=== PATIENT | male | born 1970 | race Caucasian/White ===

== ENCOUNTER 2022-09-23 10:03 | Outpatient (CLI) | payer BC, MEDICAID, SELFPAY ==
[2022-09-23 14:36] LABS: Hepatitis C Virus Antibody* Negative (Negative)
[2022-09-23 14:52] LABS: Albumin* 4.7 g/dL (3.3-5.0); Chloride* 103 mmol/L (96-114)
[2022-09-23 14:53] LABS: Potassium* 3.7 mmol/L (3.6-5.1); Sodium* 142 mmol/L (135-149)
[2022-09-23 14:55] LABS: Aspartate Amino Transferase* 99 U/L (12-35); Bilirubin Total* 0.5 mg/dL (0.1-1.5); Blood Urea Nitrogen* 26 mg/dL (7-30); Carbon Dioxide* 30 mmol/L (20-32); Cholesterol* 181 mg/dL (90-199); Creatinine* 1.2 mg/dL (0.5-1.5); Estimated Glomerular Filt Rate 72 ml/min; Glucose* 114 mg/dL (60-115); Total Protein* 8.8 g/dL (6.0-8.3)
[2022-09-23 14:56] LABS: Alanine Aminotransferase* 99 U/L (4-50); Alkaline Phosphatase* 77 U/L (40-150); Calcium* 8.9 mg/dL (8.4-10.6); HDL Cholesterol* 26 mg/dL (>=40); LDL Cholesterol Calculated 114 mg/dL (<100); Triglycerides* 206 mg/dL (40-149)
[2022-09-26 20:19] LABS: Albumin 4.23 g/dL (3.75-5.01); Alpha 1 Globulin 0.31 g/dL (0.19-0.46); Alpha 2 Globulin 0.77 g/dL (0.48-1.05); EER Immunofix Electrophoresis EERUnavailable; Total Protein, Serum 8.5 g/dL (6.3-8.2)
--- NOTE | 2022-10-01 08:29 | ONC.NURNOTE ---
Received referal from Dr. 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 This case was discussed with Dr. Nadine Luu - per provider Not abnormal SPEP, patient should be worked up for autoimmune vs. infectious process. Oncologist printed out information on test that was run by Dr. Balbuena and requested that information be sent to her. Faxed to the [facility] at [phone]. Patient not to be scheduled at this time. Patient notified that does not need to see hematology at this time and his primary care should be reaching out to him.
== END 2022-09-23 10:04 | disposition home or self-care (01) ==
PROVIDERS: PCP Family Medicine; Visit Provider Family Medicine
DX: Z00.00 Encounter for general adult medical examination without abnormal findings (principal); D64.9 Anemia, unspecified; R76.8 Other specified abnormal immunological findings in serum; Z13.6 Encounter for screening for cardiovascular disorders; Z11.59 Encounter for screening for other viral diseases
CPT/HCPCS: 80053; 80061; 84165; 86334; 86803

== ENCOUNTER 2023-02-18 09:11 | Outpatient (CLI) | payer BC, SELFPAY | END 2023-02-18 09:12 | disposition home or self-care (01) | LOC: OP CLINIC 09:14 | PROVIDERS: PCP Family Medicine; Visit Provider Internal Medicine | DX: Z12.11 Encounter for screening for malignant neoplasm of colon (principal); K62.1 Rectal polyp; K57.30 Diverticulosis of large intestine without perforation or abscess without bleeding | CPT/HCPCS: 45380; 88305; J2250; J3010 ==

== ENCOUNTER 2023-03-28 12:22 | Outpatient (CLI) | payer BC, SELFPAY ==
[2023-03-28 22:05] LABS: Total Protein Urine 27 mg/dL
[2023-03-28 22:11] LABS: Microalbumin Urine 8 mg/dL
[2023-03-28 22:17] LABS: Creatinine Urine 58.6 mg/dL; Microalbumin Creatinine Ratio 130 mg/g (0-30)
== END 2023-03-28 12:23 | disposition home or self-care (01) ==
PROVIDERS: PCP Family Medicine; Visit Provider Family Medicine
DX: E11.9 Type 2 diabetes mellitus without complications (principal); D64.9 Anemia, unspecified; I10 Essential (primary) hypertension; R74.8 Abnormal levels of other serum enzymes; E78.5 Hyperlipidemia, unspecified
CPT/HCPCS: 80061; 82043; 82570; 84156

== ENCOUNTER 2023-05-20 14:51 | Outpatient (CLI) | payer BC, SELFPAY | END 2023-05-20 14:52 | disposition home or self-care (01) | PROVIDERS: PCP Family Medicine; Visit Provider Family Medicine | DX: Z01.818 Encounter for other preprocedural examination (principal); R73.03 Prediabetes; I10 Essential (primary) hypertension; E11.9 Type 2 diabetes mellitus without complications | CPT/HCPCS: 80053 ==

== ENCOUNTER 2023-05-31 06:12 | Day surgery (SDC) | payer BC, SELFPAY ==
[2023-05-31] VITALS (13 sets, daily range): BP systolic 93–129; BP diastolic 53–90; PULSE 53–73; RESP 12–20; TEMP 36.1–36.6; O2SAT 91–100; BMI 29.3
[2023-05-31] MEDS: SODIUM CHLORIDE 0.9 % (FLUSH) 10 ML SYRINGE IVF (06:24)
[2023-05-31] MEDS: LACTATED RINGERS 1000 ML 1,000 ML 100 ML IV (06:25)
[2023-05-31] MEDS: CEFAZOLIN 2 GM INJ IVP (07:36)
--- NOTE | 2023-05-31 08:16 | W.ANESCHARGE ---
Anesthesia Charges Start Date/Time Anesthesia Start Date: 05/31/23 Anesthesia Start Time: 07:26 Stop Date/Time Anesthesia Stop Date: 05/31/23 Anesthesia Stop Time: 09:09
[2023-05-31] MEDS: BUPIVACAINE 0.5% 30 ML INJECTION (08:50)
--- NOTE | 2023-05-31 08:56 | P.GSOP_ITS ---
Operative Note Pre-op diagnosis: Biliary colic Post-op diagnosis: Same Type of Procedure: Laparoscopic cholecystectomy Indications: Patient is a 52-year-old male who presented to clinic with clinical workup and symptoms consistent with biliary colic. Risks and benefits of operative intervention were discussed at length with the patient. Risks included but was not limited to: Bleeding, infection, risk of damage to surrounding structures, possible need for additional procedures, possible need to convert to an open operation and postoperative complications such as pneumonia, pulmonary emboli or NC. All questions and concerns were addressed with the patient agreeing to proceed. Procedure Description: After discussing the risks and benefits of the procedure, the patient signed informed consent.? The operative site was marked and the patient was brought to the operating room and placed on the operating table in supine position.? Care was taken to pad the patient's pressure points.?? The patient was then intubated by anesthesia.?? The operative site was then prepped and draped in the usual sterile fashion.? A time-out was then performed. Entrance to the abdomen was gained via a 5 mm Visiport in the left upper quadrant. The abdomen was insufflated and briefly surveyed for signs of injury. There was none. 11 mm umbilical port was placed as well as 2 working ports along the right costal margin. Patient was then placed in reverse Trendelenburg position with the right side up. The gallbladder fundus was grasped and retrac misael cephalad. The gallbladder was very contracted and fatty in appearance. The liver was also very nodular and hard, consistent with a cirrhotic liver. The infundibulum of the gallbladder was grasped. A combination of hook cautery and blunt dissection was used to carefully dissect out the cystic duct and artery until they could clearly be seen entering the gallbladder without any intervening structures. The gallbladder was dissected off the cystic plate to achieve the critical view. Once this was achieved the cystic duct and artery were each clipped with 2 clips proximally and 1 clip distally and transected with the scissors. The gallbladder was then taken off of the liver bed. This portion of the procedure was made difficult secondary to a contracted in fatty gallbladder. There was some bile spillage and a few small black stones entered into the abdomen. These were removed with irrigation. Once the gallbladder was free it was removed from the abdomen using an Endo-Catch bag. The gallbladder bed was surveyed for hemostasis. The umbilical port fascia was then closed with 0 Vicryl via the Chepe-Jen. the ports were then removed under direct vision. The skin was closed with absorbable subcuticular suture. Instrument sponge and needle counts were correct at the end of the case. The patient was then woken and transferred to the PACU in stable condition. The patient was then woken and transported to the recovery area in stable condition. ? The patient tolerated the procedure well. Findings: Nodular liver. Fatty contracted gallbladder with presence of cholelithiasis. Anesthesia: GETA Surgeon: Kellie Gallardo MD Estimated blood loss (mL): 5 Specimen: Gallbladder Condition: stable Disposition: PACU Date of procedure: 05/31/23
--- NOTE | 2023-05-31 09:07 | W.ANESCHARGE ---
Anesthesia Charges Start Date/Time Anesthesia Start Date: 05/31/23 Anesthesia Start Time: 07:26 Stop Date/Time Anesthesia Stop Date: 05/31/23 Anesthesia Stop Time: 09:09
[2023-05-31] MEDS: fentaNYL 100 MCG/2 ML inj 50 MCG IVP (09:14)
[2023-05-31] MEDS: LACTATED RINGERS 1000 ML 1,000 ML 35 ML IV (09:27)
== END 2023-05-31 11:14 | disposition home or self-care (01) ==
PROVIDERS: PCP Family Medicine; Visit Provider Surgery
PROC: 0FT44ZZ Resection of Gallbladder, Percutaneous Endoscopic Approach (ICD-10-PCS; CPT 47562; principal; 2023-05-31 07:30)
DX: K80.10 Calculus of gallbladder with chronic cholecystitis without obstruction (principal); K76.0 Fatty (change of) liver, not elsewhere classified
CPT/HCPCS: 47562; 790; 82962; 88304; J0330; J0665; J0690; J1100; J2250; J2405; J2704; J2710; J3010; J7120

== ENCOUNTER 2023-10-05 08:16 | Outpatient (CLI) | payer BC, SELFPAY | END 2023-10-05 08:17 | disposition home or self-care (01) | PROVIDERS: PCP Family Medicine; Visit Provider Family Medicine | DX: Z01.818 Encounter for other preprocedural examination (principal); I10 Essential (primary) hypertension | CPT/HCPCS: 80048 ==

== ENCOUNTER 2024-10-01 10:22 | Outpatient (CLI) | payer OTHER, SELFPAY ==
[2024-10-04 08:53] LABS: Albumin 4.58 g/dL (3.75-5.01); Alpha 2 Globulin 0.58 g/dL (0.48-1.05); Total Protein, Serum 8.1 g/dL (6.3-8.2)
== END 2024-10-01 10:23 | disposition home or self-care (01) ==
PROVIDERS: PCP Family Medicine; Visit Provider Family Medicine
DX: R76.8 Other specified abnormal immunological findings in serum (principal); E78.2 Mixed hyperlipidemia; I10 Essential (primary) hypertension; E11.65 Type 2 diabetes mellitus with hyperglycemia; Z12.5 Encounter for screening for malignant neoplasm of prostate
CPT/HCPCS: 80053; 80061; 82043; 82570; 82607; 84165; G0103

== ENCOUNTER 2025-10-04 08:15 | Outpatient (CLI) | payer OTHER, SELFPAY | END 2025-10-04 08:16 | disposition home or self-care (01) | LOC: NFLDREF 10-09 06:24 | PROVIDERS: PCP Family Medicine; Referring Provider Family Medicine; Visit Provider Family Medicine | DX: E11.65 Type 2 diabetes mellitus with hyperglycemia (principal); E78.2 Mixed hyperlipidemia; I10 Essential (primary) hypertension; R74.8 Abnormal levels of other serum enzymes; Z12.5 Encounter for screening for malignant neoplasm of prostate | CPT/HCPCS: 80053; 80061; 82043; 82570; G0103 ==

== ENCOUNTER 2025-10-08 08:50 | Outpatient (CLI) | payer OTHER, SELFPAY | END 2025-10-08 08:51 | disposition home or self-care (01) | PROVIDERS: PCP Family Medicine; Visit Provider Family Medicine | DX: E11.65 Type 2 diabetes mellitus with hyperglycemia (principal); E78.2 Mixed hyperlipidemia; R74.8 Abnormal levels of other serum enzymes; I10 Essential (primary) hypertension; R76.89 Other specified abnormal immunological findings in serum | CPT/HCPCS: 82607; 83520; 84155; 84156; 84165; 86335 ==